=== PATIENT | female | born 1965 | race Caucasian/White ===

== ENCOUNTER 2021-09-05 22:52 | Emergency (ER) | payer MEDICAID, SELFPAY ==
[2021-09-05 22:54] VITALS: BP 103/72; PULSE 86; RESP 18; TEMP 38.1; O2SAT 100; BMI 17.7
--- NOTE | 2021-09-05 23:02 | ED.RN ---
DR. BRDAFORD INFORMED OF PT SX ON TRIAGE. REPORTS PT TO BE EVALUATED.
--- NOTE | 2021-09-05 23:14 | EKG12_ITS ---
Test Reason : DYSRHYTHMIA Blood Pressure : / mmHG Vent. Rate : 100 BPM Atrial Rate : 100 BPM P-R Int : 118 ms QRS Dur : 084 ms QT Int : 356 ms P-R-T Axes : 086 073 054 degrees QTc Int : 459 ms Normal sinus rhythm Normal ECG Confirmed by ADRIEL DUMONT, GRACE ([id number]), editor sound SHARYN MUSTAFA ([id number]) on 09/07/2021 10:24:37 AM Referred By: LO Confirmed By:GRACE MOREL MD
--- NOTE | 2021-09-05 23:14 | RAD_ITS ---
STUDY: X-RAY CHEST REASON FOR EXAM: Female, 56 years old. cough TECHNIQUE: 2 AP portable views of the chest. 12:02 AM. COMPARISON: None. FINDINGS: The lungs are clear and expanded. There is no demonstrated pleural abnormality. Normal size heart. Normal mediastinum and marco. Normal visualized pulmonary arteries. Normal visualized aortic arch and descending thoracic aorta. No acute osseous abnormality. Total right shoulder prosthesis. Old left rib fractures. There is no demonstrated abnormality of the visualized soft tissue structures of the upper abdomen. RAD/Chest 1 View (Portable) IMPRESSION: No pneumonia or other acute cardiopulmonary disease process identified. Electronically Signed: Lan Ortiz MD at 0:36 EDT ,
--- NOTE | 2021-09-05 23:15 | EDS_ITS ---
HPI History of Present Illness Chief Complaint: Headache Informant: patient Narrative Narrative: Patient presents with multiple complaints. She was feeling fine until she sat in her car filling out paperwork at a library for over 2 hours today. She states the car was sealed up. It was in the mid 90s. The only thing she has eaten or drank today were 2 Mountain Dew's. She feels she has a dry mouth. She is aching all over. Triage note mentions a headache but she actually complains of pain covering her entire body. She also has a history of migraines. This is like a migraine but worse than her average. Its not her worst. It was not thunderclap. She also does admit to some slight cough that is nonproductive. She does states she feels bad overall. Only medicine that she is actually taking at this time is Adderall and a statin. The other medication she is not actually taking. PFSH PFS Home Medications cyclobenzaprine 5 mg tablet 5 mg PO TID PRN Pain 09/05/21 [History Last Taken Unknown] dextroamphetamine-amphetamine 15 mg tablet (Adderall) 15 mg PO BID 09/05/21 [History Last Taken Unknown] doxepin 10 mg capsule 10 mg PO QHS 09/05/21 [History Last Taken Unknown] hydroxyzine HCl 25 mg tablet 25 mg PO QHS 09/05/21 [History Last Taken Unknown] Allergy/AdvReac Type Severity Reaction Status Date / Time erythromycin base Allergy Hives Verified 09/05/21 22:53 Social History Smoking Status: Current every day smoker tobacco type: cigarettes ROS ROS ED Constitutional Constitutional ED: Reports subjective Eyes Eyes: Denies change in vision or diplopia ENT ENT ED: Denies ear pain, rhinorrhea or sore throat Cardiovascular Cardiovascular: Denies chest pain or palpitations Respiratory/Chest Respiratory/Chest: Reports cough and dyspnea Gastrointestinal Gastrointestinal: Denies abdominal pain, melena, nausea or vomiting Genitourinary Genitourinary ED: Reports other Details: When specifically asked, she does admit that her urine was dark today. She thinks she only urinated 1 time since she was filling out paperwork at about 4:00 today. Musculoskeletal Musculoskeletal: Reports arthralgias and other Details: She has diffuse arthralgias and myalgias. Integumentary Denies abscess or rash Neurologic Neurologic: Reports headache(s) and other Details: There is report of right- sided weakness. However, she had a friend who has some medical training. They asked her to wiggle her toes. When she wiggles the toes on her right foot her leg hurt. There is no lateralizing weakness or numbness. ; Denies paresthesias or weakness Psychiatric Psychiatric: Reports anxiety; Denies depression Endocrine Endocrinology: Denies cold intolerance or heat intolerance Allergic/Immunologic Allergic/Immunologic ED: Denies mouth swelling EXAM Physical Exam Const Vital Signs: 09/05/21 22:54 09/05/21 23:53 Temperature 100.6 F H Temperature Source Temporal Pulse Rate 86 92 Respiratory Rate 18 22 H Blood Pressure 103/72 108/56 L Blood Pressure Mean 82 73 Pulse Ox 100 98 Oxygen Delivery Method Room Air Room Air Positive well nourished and well developed General Appearance ED: well developed; Negative for cyanotic or diaphoretic HEENT Reports dry mucous membranes Mouth ED: Yes dry mucous membranes Mouth: dry mucous membranes Eyes PERRL and EOMs intact bilaterally Eyes Narrative: No visual field cut. Neck no lymphadenopathy Neck Narrative: There is no meningismus. There is muscular tenderness of her neck but she can look left right up and down. Chest Wall inspection of chest normal Resp normal respiratory effort Auscultation: Negative for rales, rhonchi or wheezes Cardio regular rhythm Rate: tachycardic GI normal to inspection, nondistended, normoactive bowel sounds, non-tender and non-distended Back/Spine no CVA tenderness Extremity Extremity Narrative: .No focal weakness. She has mild tenderness everywhere with palpation of skin but no focal areas of tenderness. I see no rashes or lesions. Neuro oriented x3, CN's II-XII intact bilaterally and no sensory deficits noted Neuro Narrative: NIH 0. Sensorium / Orientation: alert Psych mental status grossly normal Skin no rashes or lesions noted and no wounds MDM MDM MDM Narrative Medical decision making narrative: Patient's blood work shows normal CBC including white count, hemoglobin and platelets. Electrolytes are overall unremarkable other than mild elevation of her creatinine and glucose. LFTs are normal. Troponin is low. Alcohol is negative. Tox is negative except for marijuana. CPK is just minimally elevated but this is not rhabdo. Lactic acid is normal. Chest x-ray shows no acute process. CT of her head shows mild right ethmoid sinus mucosal disease but no acute mass bleed or stroke. Patient is feeling better with just IV fluids. She still has muscle aches and a little bit of a headache. I will give her some Toradol. Her mouth is still dry. We will get her home at this time. I do not think her symptoms justify lumbar puncture. She has diffuse myalgias a slight cough negative COVID and influenza. She does have a headache but this is mixed in with many other symptoms. She has no meningismus. I think this is likely a combination of viral syndrome as well as not eating or drinking today and sitting in a hot car filling out paperwork for over 2 hours which is what really started her symptoms. She also has a history of migraines. Lab Data Attestation: I reviewed the patient's lab results. Labs: Laboratory Results - last 24 hr 09/05/21 09/05/21 09/05/21 23:30 23:30 23:30 WBC 6.4 RBC 4.19 L Hgb 13.4 Hct 38.2 MCV 91.2 MCH 32.0 MCHC 35.1 RDW Std Deviation 41.7 RDW Coeff of Lucy 12.7 Plt Count 276 MPV 9.9 Immature Gran % (Auto) 0.300 Neut % (Auto) 81.6 H Lymph % (Auto) 5.2 L [place] % (Auto) 12.6 H Eos % (Auto) 0.0 Baso % (Auto) 0.3 Absolute Neuts (auto) 5.2 Absolute Lymphs (auto) 0.33 L Nucleated RBC % 0 Differential Comment SCANNED Sodium 136 Potassium 3.5 Chloride 104 Carbon Dioxide 25.0 Anion Gap 7 BUN 11 Creatinine 1.10 H Estim Creat Clear Calc 44.98 Est GFR (MDRD) Af Amer 66 Est GFR (MDRD) Non-Af 55 L BUN/Creatinine Ratio 10.0 Glucose 110 H Lactic Acid Calcium 9.1 Total Bilirubin 0.20 AST 16 ALT 17 Alkaline Phosphatase 87 Total Creatine Kinase Troponin I High Sens < 3 L Total Protein 7.1 Albumin 3.8 Globulin 3.3 Albumin/Globulin Ratio 1.2 Urine Opiates Screen Urine Methadone Screen Ur Barbiturates Screen Ur Phencyclidine Scrn Ur Amphetamines Screen MDMA (Ecstasy) Screen U Benzodiazepines Scrn Urine Cocaine Screen U Cannabinoids Screen Ur Drug Screen Comment Ethyl Alcohol < 3.0 09/05/21 09/05/21 09/06/21 23:30 23:30 00:23 WBC RBC Hgb Hct MCV MCH MCHC RDW Std Deviation RDW Coeff of Lucy Plt Count MPV Immature Gran % (Auto) Neut % (Auto) Lymph % (Auto) [place] % (Auto) Eos % (Auto) Baso % (Auto) Absolute Neuts (auto) Absolute Lymphs (auto) Nucleated RBC % Differential Comment Sodium Potassium Chloride Carbon Dioxide Anion Gap BUN Creatinine Estim Creat Clear Calc Est GFR (MDRD) Af Amer Est GFR (MDRD) Non-Af BUN/Creatinine Ratio Glucose Lactic Acid 1.0 Calcium Total Bilirubin AST ALT Alkaline Phosphatase Total Creatine Kinase 226 H Troponin I High Sens Total Protein Albumin Globulin Albumin/Globulin Ratio Urine Opiates Screen NEGATIVE Urine Methadone Screen NEGATIVE Ur Barbiturates Screen NEGATIVE Ur Phencyclidine Scrn NEGATIVE Ur Amphetamines Screen NEGATIVE MDMA (Ecstasy) Screen NEGATIVE U Benzodiazepines Scrn NEGATIVE Urine Cocaine Screen NEGATIVE U Cannabinoids Screen POSITIVE H Ur Drug Screen Comment Ethyl Alcohol Radiography Diagnostic Testing: Clinical Impression(s) from Imaging Studies Chest X-Ray 09/05/21 23:14 IMPRESSION: No pneumonia or other acute cardiopulmonary disease process identified. Electronically Signed: Lan Ortiz MD at 0:36 EDT Reading Location ID and State: [facility] / [place] Tel , Service support , Brain CT 09/06/21 23:14 IMPRESSION: Minimal right ethmoid sinus mucosal disease. Otherwise negative. No intracranial hemorrhage or mass. Electronically Signed: Lan Ortiz MD at 0:27 EDT , Discharge Plan Triage Chief Complaint: Headache ED Provider: King Dickson Dx/Rx/DC Orders Clinical Impression: Dehydration, Migraine headache, Cough Instructions: ED Dehydration (Adult) Prescriptions: No Action doxepin 10 mg Capsule 10 mg PO QHS dextroamphetamine-amphetamine [Adderall] 15 mg Tablet 15 mg PO BID Rx Instructions: administer doses at least 4-6 hours apart hydroxyzine HCl 25 mg Tablet 25 mg PO QHS cyclobenzaprine 5 mg Tablet 5 mg PO TID PRN (Reason: Pain) Primary Care Provider: Care Physician,No Primary Referrals: Kate Moran MD [STAFF PHYSICIAN] - 3-5 Days if not improving Care Physician,No Primary [Primary Care Provider] - Disposition Disposition: Home, Self Care
[2021-09-05] MEDS: 0.9% Normal Saline 1,000 ML 1000 ML IV (23:24)
[2021-09-05] MEDS: Acetaminophen 325 MG Tablet 650 MG PO (23:31)
[2021-09-05 23:45] LABS: Absolute Lymphocyte Count 0.33 X10^3/uL (0.83-4.51); Absolute Neutrophil Count 5.2 X10^3/uL (2.0-7.7); Basophil# 0.02 X10^3/uL; Basophil% 0.3 % (0-1); Hematocrit 38.2 % (37-47); Hemoglobin 13.4 g/dL (12.0-15.0); Lymphocyte # 0.33 X10^3/ul (0.83-4.51); Lymphocyte % 5.2 % (19-41); Mean Corp Hgb Conc 35.1 g/dL (32-36); Mean Corpuscular Volume 91.2 fL (81-99); Mean Platelet Vol. 9.9 fl (6.2-12.0); Monocyte% 12.6 % (0-10); NRBC Flagged by Analyzer 0 % (0-5); Neutrophil # 5.18 X10^3/uL (2.7-7.7); Neutrophil % 81.6 % (47-70); POSITIVE DIFFERENTIAL YES; Platelet Count 276 K/mm3 (150-450); RBC Distribution Width CV 12.7 % (11.6-14.6); RBC Distribution Width SD 41.7 fl (35.1-43.9); Red Blood Count 4.19 M/mm3 (4.2-5.4); White Blood Count 6.4 K/mm3 (4.4-11.0)
[2021-09-05 23:53] VITALS: BP 108/56; PULSE 92; RESP 22; O2SAT 98
[2021-09-06 00:04] LABS: Differential Indicated SCAN CRITERIA MET
[2021-09-06 00:09] LABS: ALB/GLOB Ratio 1.2 RATIO (0.9-2.4); AST(SGOT) 16 U/L (15-37); Alanine Aminotransfer ALT/SGPT 17 U/L (13-56); Albumin, Serum 3.8 g/dL (3.2-5.0); Alkaline Phosphatase 87 U/L (45-117); Anion Gap 7 (5-15); BUN 11 mg/dL (7-18); Calcium,Total 9.1 mg/dL (8.5-10.1); Chloride 104 mmol/L (98-107); EST Glomerular Filtration Rate 55 mL/min (>60); Est Glom Filt Rate - Afr Amer 66 mL/min (>60); Estimated Creatinine Clearance 44.98 ml/min; Globulin 3.3 g/dL (2.2-4.2); Glucose 110 mg/dL (74-106); Potassium 3.5 mmol/L (3.5-5.1); Protein, Total 7.1 g/dL (6.4-8.2); Sodium Level 136 mmol/L (136-145); Troponin-I HS < 3 pg/mL (3.0-54.0)
[2021-09-06 00:13] LABS: Alcohol, Blood (Medical)-Serum < 3.0 mg/dL
[2021-09-06 00:23] LABS: Differential Comment SCANNED
[2021-09-06 00:34] LABS: CPK Total, Creatine Kinase 226 U/L (26-192)
[2021-09-06 00:45] LABS: Amphetamine Urine VISTA NEGATIVE (<1000 ng/mL); Barbiturate Urine VISTA NEGATIVE (< 200 ng/mL); Benzodiazepine Urine VISTA NEGATIVE (< 200 ng/mL); Cocaine Urine VISTA NEGATIVE (< 300 ng/mL); Ecstacy Urine VISTA NEGATIVE (< 500 ng/mL); Methadone Urine VISTA NEGATIVE (< 300 ng/mL); PCP Urine VISTA NEGATIVE (< 25 ng/mL); THC Urine VISTA POSITIVE (< 50 ng/mL); Vista UDS pH Range 7
[2021-09-06] MEDS: Ketorolac 15 MG/ML Vial IV (01:02)
[2021-09-06] MEDS: 0.9% Normal Saline 1,000 ML 999 ML IV (01:05)
[2021-09-06 02:13] VITALS: BP 95/55; PULSE 68; RESP 18; O2SAT 100
--- NOTE | 2021-09-06 23:14 | CT_ITS ---
STUDY: CT BRAIN WITHOUT CONTRAST REASON FOR EXAM: Female, 56 years old. headache RADIATION DOSAGE (If Supplied By Facility): CTDIvol = ( 44.99 ) mGy, DLP = ( 779.24 ) mGycm TECHNIQUE: Transaxial CT imaging of the brain was performed without administration of intravenous contrast material. Individualized dose optimization techniques were used for this CT. COMPARISON: No relevant priors. FINDINGS: Normal soft tissue structures. Normal calvarium. Normal size ventricles and extra-axial spaces for the patient''s age. Normal white matter tracts of the cerebral hemispheres. Normal basal ganglia and thalami. Normal brainstem. Normal cerebellum. There is no intracranial hemorrhage. There are no findings of an acute ischemic infarction. No intracranial mass. Minimal mucosal thickening noted within the anterior right ethmoid air cells. No paranasal sinus air-fluid levels. Adenoids are prominent. Visualized mastoid air cells are clear. CT/Brain/Head without Contrast IMPRESSION: Minimal right ethmoid sinus mucosal disease. Otherwise negative. No intracranial hemorrhage or mass. Electronically Signed: Lan Ortiz MD at 0:27 EDT ,
== END 2021-09-06 02:15 | disposition home or self-care (01) ==
PROVIDERS: Emergency Provider Emergency Medicine; Visit Provider Emergency Medicine
DX: E86.0 Dehydration (principal); G43.909 Migraine, unspecified, not intractable, without status migrainosus; M79.10 Myalgia, unspecified site; R05.9 Cough, unspecified; F17.210 Nicotine dependence, cigarettes, uncomplicated
CPT/HCPCS: 70450; 71045; 80053; 80307; 82077; 82550; 83605; 84484; 85025; 87428; 93005; 96361; 96374; 99285; J7030; A4216

== ENCOUNTER 2023-04-16 00:58 | Emergency (ER) | payer MEDICAID, SELFPAY ==
[2023-04-16 01:00] VITALS: BP 118/77; PULSE 65; RESP 12; TEMP 36.5; O2SAT 100; BMI 19.1
--- OUTSIDE RECORDS SUMMARY | 2023-04-16 01:35 | XMS RPT_ITS | CCD ---
Author Name Unknown Address [address] [place] [address] Organization [facility] Care Team Providers Care Director Of Event Sales Name Role Phone Codie Bang. Unavailable Unavailable Eddie Quintanilla Unavailable Unavailable Codie Bang Unavailable Unavailable Kyler Cooley Unavailable Unavailable Codie Bang Primary Care Provider [phone] Codie Bang Primary Care Provider CODIE BANG MD Primary Care Physician [phone] CODIE BANG MD Attending UnavailCODIE Curry MD Primary Care UnavailCodie Curry Primary Care Provider [phone] Codie Bang MD Primary Care Provider [phone] CODIE BANG Primary Care Unavailable MIGUELINA FERREIRA Attending Unavailable MIGUELINA FERREIRA Referring Unavailable CODIE BANG Primary Care Unavailable CODIE BANG Primary Care Unavailable DIANA MEI Attending Unavailable CODIE BANG Primary Care Unavailable HARISH PEARCE Referring Unavailable CODIE BANG Primary Care Unavailable Allergies Allergy Classification Reported Allergen(s) Allergy Type Date of Onset Reaction(s) Facility (2 sources) Erythromycin Drug Allergy 02-18-2017 [facility] Repository (3 sources) Naproxen; Translations: [NAPROXEN] Drug Allergy 02-18-2017 [facility] Repository (5 sources) Erythromycin; Translations: [erythromycin] Drug Allergy 01-15-2022 Unknown [facility] (4 sources) Naproxen; Translations: [naproxen] Drug Allergy 02-18-2017 Unknown [facility] Medications Current Medications Medication Drug Class(es) Dates Sig (Normalized) Sig (Original) cephalexin 500 mg oral capsule (1 source) Cephalosporin Antibacterial Start: 01-03-2023 End: 01-10-2023 take 1 capsule by mouth three times daily cephALEXin (KEFLEX) 500 mg capsule Indications: Abrasion of finger with infection, initial encounter Take 1 capsule by mouth three times a day for 7 days. 21 capsule 0 01/03/2023 01/10/2023 Active Completed/Discontinued Medications Medication Drug Class(es) Dates Sig (Normalized) Sig (Original) amphetamine aspartate 5 mg / amphetamine sulfate 5 mg / dextroamphetamine saccharate 5 mg / dextroamphetamine sulfate 5 mg oral tablet (3 sources) Central Nervous System Stimulant Start: 11-23-2021 take 1 tablet by mouth once daily before breakfast dextroamphetamin e-amphetamine (ADDERALL) 20 mg tablet Take 1 tablet by mouth daily before breakfast. 0 11/23/2021 Active Problems Active Problems Problem Classification Problem Date Documented Da te Episodic/Chronic Attention-deficit, conduct, and disruptive behavior disorders (1 source) Attention deficit hyperactivity disorder, combined type; Translations: [Attention-deficit hyperactivity disorder, combined type] 10-10-2022 Chronic Attention-deficit, conduct, and disruptive behavior disorders (1 source) Attention-deficit hyperactivity disorder, combined type; Translations: [Attention deficit hyperactivity disorder, combined type] Onset: 10-10-2022 Chronic Other bone disease and musculoskeletal deformities (1 source) Costal chondritis; Translations: [Chondrocostal junction syndrome [Tietze]] Episodic Other connective tissue disease (1 source) Pain of left hand; Translations: [Pain in left hand] 01-03-2023 Episodic Other connective tissue disease (1 source) Pain in left hand; Translations: [Pain of left hand] Onset: 01-03-2023 Episodic Skin and subcutaneous tissue infections (1 source) Local infection of the skin and subcutaneous tissue, unspecified; Translations: [Abrasion of finger with infection, initial encounter] Onset: 01-03-2023 Episodic Superficial injury; contusion (4 sources) Contusion of left hand; Translations: [Contusion of left hand, initial encounter] Onset: 01-03-2023 01-03-2023 Episodic Past or Other Problems Problem Classification Problem Date Documented Da te Episodic/Chronic Headache; including migraine (2 sources) Scalp tenderness; Translations: [Scalp tenderness] Onset: 01-15-2022 Episodic Other bone disease and musculoskeletal deformities (1 source) Chondrocostal junction syndrome [Tietze]; Translations: [Costochondritis] Onset: 01-15-2022 Episodic Results Test Name Value Interpretation Reference Range Facil ity Vital Signs Date Time Vital Sign Value Performing Clinician Lucilai david 01-03-2023 16:26-0400 Body temperature 98.1 [degF] Miguelina Ferreira MD Work Phone: [facility] 01-03-2023 16:26-0400 Body weight 50.8 kg Miguelina Ferreira MD Work Phone: [facility] 01-03-2023 16:26-0400 Diastolic blood pressure 82 mm[Hg] Miguelina Ferreira MD Work Phone: [facility] 01-03-2023 16:26-0400 Heart rate 66 /min Miguelina Ferreira MD Work Phone: [facility] 01-03-2023 16:26-0400 Respiratory rate 19 /min Miguelina Ferreira MD Work Phone: [facility] 01-03-2023 16:26-0400 SaO2% (BldA) [Mass fraction] 100 % Miguelina Ferreira MD Work Phone: [facility] 01-03-2023 16:26-0400 Systolic blood pressure 124 mm[Hg] Miguelina Ferreira MD Work Phone: [facility] 01-15-2022 18:44-0400 Body temperature 98.29 [degF] Diana Cisse MD Work Phone: [facility] 01-15-2022 18:44-0400 Body weight 49.9 kg Diana Cisse MD Work Phone: [facility] 01-15-2022 18:44-0400 Diastolic blood pressure 72 mm[Hg] Diana Cisse MD Work Phone: [facility] 01-15-2022 18:44-0400 Heart rate 64 /min Diana Cisse MD Work Phone: [facility] 01-15-2022 18:44-0400 Respiratory rate 16 /min Diana Cisse MD Work Phone: [facility] 01-15-2022 18:44-0400 SaO2% (BldA) [Mass fraction] 100 % Diana Cisse MD Work Phone: [facility] 01-15-2022 18:44-0400 Systolic blood pressure 118 mm[Hg] Diana Cisse MD Work Phone: [facility] Encounters Encounter Date Encounter Type Care Provider Facility Start: 01-03-2023 End: 01-03-2023 ambulatory CODIE Manav [facility] Facility:[id number] Start: 01-03-2023 End: 01-03-2023 Office outpatient visit 15 minutes Miguelina Ferreira MD Work Phone: [facility] Procedures Date Procedure Procedure Detail Performing Clinician Start: 10-10-2022 Ecg routine ecg w/le ast 12 lds i&r only Alfredo Barker Work Phone: Start: 05-11-2021 Lipid 1996 panel - S chito or Plasma Miguelina Ferreira MD Work Phone: Plan of Treatment Date Care Activity Detail Author Start: 06-15-2027 Urine microalbumin profile DTaP,Tdap,Td Vaccine (3 - Td or Tdap) [facility] Start: 05-11-2026 Lipid 1996 panel - S chito or Plasma Lipid Screening [facility] Start: 05-11-2026 LIPID SCREEN LIPID SCREEN [facility] Start: 10-19-2025 Diabetes Screening Diabetes Screenin g [facility] Start: 05-11-2024 DIABETES SCREEN DIABETES SCREEN [facility] Start: 01-03-2023 End: 02-02-2024 XR HAND GENERAL 3V PA/LAT/OBL LEFT [facility] Work Phone: Immunizations Immunization Date Immunization Notes Care Provider Fa jodi 12-27-2020 influenza virus vacc ine, unspecified formulation Miguelina Ferreira MD Work Phone: [facility] Payers Date Payer Category Payer Unknown [id number] 2021 Medicaid [id number] 2021 Medicaid [id number] 2017 Self-pay 2014 Medicaid [facility] MEDICAID [facility] MEDICAID [id number] 2014-Present [phone] [address] [place] [address] Medicaid [id number] 1965 Unknown [id number] Unknown [id number] Unknown [id number] Social History Date Type Detail Facility Tobacco smoking stat [facility] Tobacco smoking consumption unknown [facility] Start: 1965 Sex Assigned At Not on file [facility] Start: 01-15-2022 Tobacco smoking stat [facility] Smokes tobacco daily [facility] of tobacco use [facility] Start: 01-15-2022 Tobacco use and exposure Smoke less tobacco non-user [facility] Start: 01-15-2022 End: 01-03-2023 Alcohol intake Ex-drinker (finding) [facility] Start: 01-05-2022 End: 01-15-2022 Exposure to SARS-CoV-2 (event) Not sure [facility] Start: 03-13-2018 Tobacco smoking status Heavy t obacco smoker (finding) [facility] Sex Assigned At Sex [facility] Start: 01-15-2022 End: 01-03-2023 History of Social function [facility] Start: 01-15-2022 End: 01-03-2023 Tobacco use panel [facility] Adult Depression Screening Assessment 0 [facility] Clinical Notes 04-28-2020 to 01-03-2023 Patient InstructionsMiguelina Ferreira MD - 01/03/2023 4:33 PM EDTWhcyndee, MARIA FERNANDA Elliott - 10/10/2022 4:06 PM EDTPatient Catherine Cisse MD - 01/15/2022 7:04 PM EDT Note Date & Type Note Facility 01-03-2023 Note HNO ID: [id number] Author: Jem Pal RT(R) Service: ? Author Type: Technologist Type: Progress Notes Filed: 01/03/2023 7:44 PM Note Text: Radiology Service Progress Note PATIENT NAME: Veronica Head DATE OF SERVICE: January 03, 2023 TIME: 7:44 PM PATIENT IDENTITY VERIFICATION COMPLETED USING TWO (2) IDENTIFIERS: Name and Date of confirmed by patient verbally. FALL SCREENING: Has the patient had 2 falls in the last year or 1 fall with injury or currently using an Ambulatory Assistive Device (Walker, Cane, Wheelchair, Crutches, etc.)? No PATIENT GENDER DATA: Female. status: : No status: N/A PATIENT RELEVANT IMPLANT DATA REVIEWED: Not Applicable RADIOLOGY DEPARTMENT: General X-ray: Exam(s) Completed: Upper Extremity X-Ray(s): Hand, left PERIPHERAL IV DATA: Not applicable SIGNED BY: RT Jourdan(R) January 03, 2023 7:44 PM [facility] 01-03-2023 Note HNO ID: [id number] Author: Miguelina Ferreira MD Service: ? Author Type: Physician Type: Progress Notes Filed: 01/03/2023 5:05 PM Note Text: Veronica Head is a 57 year old FEMALE who presents with Hand Pain (Left hand /Started 4 days ago at home/States a freezer that weighs approx 300lbs smashed her hand) and Finger Pain (S/p freezer landing on her hand, /4 days ago ) 57 years old female been with pain of the left hand Her hand got smashed while she was helping to move a freezer onto the truck and it came down This happened 4 days ago and she still have pain and difficulty moving her fingers. Also has a scratch on the left ring finger which happened before this accident She got this scratch from a patio break caused an abrasion which is now red and slightly painful Hand Pain History reviewed. No pertinent past medical history. There is no problem list on file for this patient. Current Outpatient Medications Medication Sig Dispense Refill rosuvastatin calcium (CRESTOR ORAL) Take by mouth once daily. Cholecalciferol, Vitamin D3, 125 mcg (5,000 unit) cap dextroamphetamine-amphetamine (ADDERALL) 20 mg tablet Take 1 tablet by mouth daily before breakfast. hydrOXYzine HCl (ATARAX) 25 mg tablet Take by mouth. calcium-vits E3-A-C4-minerals 166.75 mg- 166.75 unit cap calcium (Patient not taking: Reported on 01/03/2023) atorvastatin calcium (LIPITOR ORAL) atorvastatin (Patient not taking: Reported on 01/03/2023) doxepin capsule 10 mg Take by mouth. (Patient not taking: Reported on 01/03/2023) etodolac (LODINE) 300 mg capsule Take 1 capsule by mouth every 8 hours. (Patient not taking: Reported on 01/03/2023) 20 capsule 0 No current facility-administered medications for this visit. Social History Tobacco Use Smoking status: Every Day Types: Cigarettes Smokeless tobacco: Never Vaping Use Vaping Use: Never used Substance Use Topics Alcohol use: Not Currently Drug use: Not Currently Alcohol Use: Not Currently Tobacco Use: Types: Cigarettes History reviewed. No pertinent family history. Review of Systems Musculoskeletal: Positive for joint pain (Left hand pain). BP 124/82 Pulse 66 Temp (Src) 98.1 (Temporal) Resp 19 Wt 112 lb (50.8kg) SpO2 100% Physical Exam Vitals reviewed. Constitutional: General: She is not in acute distress. Appearance: Normal appearance. She is not ill-appearing or toxic-appearing. Cardiovascular: Rate and Rhythm: Normal rate and regular rhythm. Heart sounds: Normal heart sounds. Pulmonary: Effort: Pulmonary effort is normal. Breath sounds: Normal breath sounds. Musculoskeletal: General: Swelling (Mild swelling of the dorsum of the left hand) and tenderness (Of the metacarpals and fingers) present. Comments: We did motions of fingers due to pain There is an oral small abrasion on the radial side of left ring finger about 3 to 4 mm in diameter with dry scab. The surrounding skin is red and swollen The patient appears to be infected. Neurological: Mental Status: She is alert. Splane to patient that x-ray did not show any acute bone or joint injury of the hand. We will treat her for infected abrasion of her finger with antibiotics. Patient understand and agree ASSESSMENT/PLAN: 1. Pain of left hand - ICD9: 729.5, ICD10: M79.642 (primary diagnosis) - XR HAND GENERAL 3V PA/LAT/OBL LEFT 2. Contusion of left hand, initial encounter - ICD9: 923.20, ICD10: S60.222A 3. Abrasion of finger with infection, initial encounter - ICD9: 915.1, ICD10: S60.419A, L08.9 - CEPHALEXIN 500 MG CAPSULE Rest elevation ice OTC pain med Limit activities F/u PCP Explained Take antibiotic as per prescription and do wound care of finger at home Miguelina Ferreira MD [facility] 01-03-2023 Instructions Miguelina Ferreira MD - 01/03/2023 5:02 PM EDT Rest elevation ice OTC pain med Limit activities F/u PCP Explained Take antibiotic as per prescription and do wound care of finger at home documented in this encounter [facility] 01-03-2023 History of Present illness Narrative Formatting of this note is different fro m the original. Veronica Head is a 57 year old FEMALE who presents with Hand Pain (Left hand /Started 4 days ago at home/States a freezer that weighs approx 300lbs smashed her hand) and Finger Pain (S/p freezer landing on her hand, /4 days ago ) 57 years old female been with pain of the left hand Her hand got smashed while she was helping to move a freezer onto the truck and it came down This happened 4 days ago and she still have pain and difficulty moving her fingers. Also has a scratch on the left ring finger which happened before this accident She got this scratch from a patio break caused an abrasion which is now red and slightly painful Hand Pain History reviewed. No pertinent past medical history. There is no problem list on file for this patient. Current Outpatient Medications Medication Sig Dispense Refill rosuvastatin calcium (CRESTOR ORAL) Take by mouth once daily. Cholecalciferol, Vitamin D3, 125 mcg (5,000 unit) cap dextroamphetamine-amphetamine (ADDERALL) 20 mg tablet Take 1 tablet by mouth daily before breakfast. hydrOXYzine HCl (ATARAX) 25 mg tablet Take by mouth. calcium-vits C9-V-G5-minerals 166.75 mg- 166.75 unit cap calcium (Patient not taking: Reported on 01/03/2023) atorvastatin calcium (LIPITOR ORAL) atorvastatin (Patient not taking: Reported on 01/03/2023) doxepin capsule 10 mg Take by mouth. (Patient not taking: Reported on 01/03/2023) etodolac (LODINE) 300 mg capsule Take 1 capsule by mouth every 8 hours. (Patient not taking: Reported on 01/03/2023) 20 capsule 0 No current facility-administered medications for this visit. Social History Tobacco Use Smoking status: Every Day Types: Cigarettes Smokeless tobacco: Never Vaping Use Vaping Use: Never used Substance Use Topics Alcohol use: Not Currently Drug use: Not Currently Alcohol Use: Not Currently Tobacco Use: Types: Cigarettes History reviewed. No pertinent family history. Review of Systems Musculoskeletal: Positive for joint pain (Left hand pain). BP 124/82 Pulse 66 Temp (Src) 98.1 (Temporal) Resp 19 Wt 112 lb (50.8kg) SpO2 100% Physical Exam Vitals reviewed. Constitutional: General: She is not in acute distress. Appearance: Normal appearance. She is not ill-appearing or toxic-appearing. Cardiovascular: Rate and Rhythm: Normal rate and regular rhythm. Heart sounds: Normal heart sounds. Pulmonary: Effort: Pulmonary effort is normal. Breath sounds: Normal breath sounds. Musculoskeletal: General: Swelling (Mild swelling of the dorsum of the left hand) and tenderness (Of the metacarpals and fingers) present. Comments: We did motions of fingers due to pain There is an oral small abrasion on the radial side of left ring finger about 3 to 4 mm in diameter with dry scab. The surrounding skin is red and swollen The patient appears to be infected. Neurological: Mental Status: She is alert. Splane to patient that x-ray did not show any acute bone or joint injury of the hand. We will treat her for infected abrasion of her finger with antibiotics. Patient understand and agree ASSESSMENT/PLAN: 1. Pain of left hand - ICD9: 729.5, ICD10: M79.642 (primary diagnosis) - XR HAND GENERAL 3V PA/LAT/OBL LEFT 2. Contusion of left hand, initial encounter - ICD9: 923.20, ICD10: S60.222A 3. Abrasion of finger with infection, initial encounter - ICD9: 915.1, ICD10: S60.419A, L08.9 - CEPHALEXIN 500 MG CAPSULE Rest elevation ice OTC pain med Limit activities F/u PCP Explained Take antibiotic as per prescription and do wound care of finger at home Miguelina Ferreira MD documented in this encounter [facility] 10-10-2022 Note HNO ID: [id number] Author: Lexi Wang LPN Service: ? Author Type: LICENSED NURSE Type: Progress Notes Filed: 10/10/2022 4:06 PM Note Text: EKG preformed without problem. Patient tolerated well no other concerns voiced at this time. Lexi Wang LPN [facility] 10-10-2022 History of Present illness Narrative Formatting of this note might be differe nt from the original. EKG preformed without problem. Patient tolerated well no other concerns voiced at this time. Lexi Wang LPN documented in this encounter [facility] 01-15-2022 Note HNO ID: [id number] Author: Diana Cisse MD Service: ? Author Type: Physician Type: Progress Notes Filed: 01/15/2022 8:36 PM Note Text: Veronica Head is a 56 year old female who presents with pain with breathing (Lumps on head x 4 days) Patient has been complaining chest pain for the past 4 days. She said she was doing some cleaning in her garage and thinks she irritated her muscles. She also noticed some lumps in her head over the past few weeks so they do not hurt The history is provided by the patient. No dinkey motor operator was used. History reviewed. No pertinent past medical history. There is no problem list on file for this patient. Current Outpatient Medications Medication Sig Dispense Refill calcium-vits V8-Q-D3-minerals 166.75 mg- 166.75 unit cap calcium atorvastatin calcium (LIPITOR ORAL) atorvastatin Cholecalciferol, Vitamin D3, 125 mcg (5,000 unit) cap dextroamphetamine-amphetamine (ADDERALL) 20 mg tablet Take 1 tablet by mouth daily before breakfast. doxepin capsule 10 mg Take by mouth. hydrOXYzine HCl (ATARAX) 25 mg tablet Take by mouth. No current facility-administered medications for this visit. Social History Tobacco Use Smoking status: Every Day Types: Cigarettes Smokeless tobacco: Never Vaping Use Vaping Use: Never used Substance Use Topics Alcohol use: Not Currently Drug use: Not Currently Alcohol Use: Not Currently Tobacco Use: Types: Cigarettes History reviewed. No pertinent family history. Review of Systems Respiratory: Negative for cough, shortness of breath and wheezing. Cardiovascular: Positive for chest pain. Skin: Lumps head 2 weeks BP 118/72 Pulse 64 Temp 98.3 Resp 16 Wt 110 lb (49.9kg) SpO2 100% Physical Exam Vitals and nursing note reviewed. Constitutional: Appearance: Normal appearance. HENT: Right Ear: Tympanic membrane normal. Left Ear: Tympanic membrane normal. Nose: No congestion or rhinorrhea. Mouth/Throat: Mouth: Mucous membranes are moist. Pharynx: Oropharynx is clear. Eyes: Extraocular Movements: Extraocular movements intact. Pupils: Pupils are equal, round, and reactive to light. Cardiovascular: Rate and Rhythm: Normal rate and regular rhythm. Pulses: Normal pulses. Heart sounds: Normal heart sounds. Pulmonary: Effort: Pulmonary effort is normal. No respiratory distress. Breath sounds: Normal breath sounds. No wheezing or rhonchi. Chest: Chest wall: Tenderness (Bilateral anterior chest wall) present. Musculoskeletal: General: No swelling, tenderness or signs of injury. Cervical back: Normal range of motion. Lymphadenopathy: Cervical: No cervical adenopathy. Skin: General: Skin is warm and dry. Comments: No visible edema or erythema to the scalp but it appears tender to palpation Neurological: Mental Status: She is alert. ASSESSMENT/PLAN: 1. Costochondritis - ICD9: 733.6, ICD10: M94.0 (primary diagnosis) Heat to the chest 15 minutes 2-3 times a day - ETODOLAC 300 MG CAPSULE 2. Scalp tenderness - ICD9: 784.0, ICD10: R51.9 Keep the scalp clean and dry and follow-up with PCP Diana Cisse MD [facility] 01-15-2022 Instructions Diana Cisse MD - 01/15/2022 7:35 PM EDT Maskell and wahs hair frequently F/u with PCP documented in this encounter [facility] 01-15-2022 History of Present illness Narrative Formatting of this note is different fro m the original. Veronica Head is a 56 year old female who presents with pain with breathing (Lumps on head x 4 days) Patient has been complaining chest pain for the past 4 days. She said she was doing some cleaning in her garage and thinks she irritated her muscles. She also noticed some lumps in her head over the past few weeks so they do not hurt The history is provided by the patient. No dinkey motor operator was used. History reviewed. No pertinent past medical history. There is no problem list on file for this patient. Current Outpatient Medications Medication Sig Dispense Refill calcium-vits X5-J-T2-minerals 166.75 mg- 166.75 unit cap calcium atorvastatin calcium (LIPITOR ORAL) atorvastatin Cholecalciferol, Vitamin D3, 125 mcg (5,000 unit) cap dextroamphetamine-amphetamine (ADDERALL) 20 mg tablet Take 1 tablet by mouth daily before breakfast. doxepin capsule 10 mg Take by mouth. hydrOXYzine HCl (ATARAX) 25 mg tablet Take by mouth. No current facility-administered medications for this visit. Social History Tobacco Use Smoking status: Every Day Types: Cigarettes Smokeless tobacco: Never Vaping Use Vaping Use: Never used Substance Use Topics Alcohol use: Not Currently Drug use: Not Currently Alcohol Use: Not Currently Tobacco Use: Types: Cigarettes History reviewed. No pertinent family history. Review of Systems Respiratory: Negative for cough, shortness of breath and wheezing. Cardiovascular: Positive for chest pain. Skin: Lumps head 2 weeks BP 118/72 Pulse 64 Temp 98.3 Resp 16 Wt 110 lb (49.9kg) SpO2 100% Physical Exam Vitals and nursing note reviewed. Constitutional: Appearance: Normal appearance. HENT: Right Ear: Tympanic membrane normal. Left Ear: Tympanic membrane normal. Nose: No congestion or rhinorrhea. Mouth/Throat: Mouth: Mucous membranes are moist. Pharynx: Oropharynx is clear. Eyes: Extraocular Movements: Extraocular movements intact. Pupils: Pupils are equal, round, and reactive to light. Cardiovascular: Rate and Rhythm: Normal rate and regular rhythm. Pulses: Normal pulses. Heart sounds: Normal heart sounds. Pulmonary: Effort: Pulmonary effort is normal. No respiratory distress. Breath sounds: Normal breath sounds. No wheezing or rhonchi. Chest: Chest wall: Tenderness (Bilateral anterior chest wall) present. Musculoskeletal: General: No swelling, tenderness or signs of injury. Cervical back: Normal range of motion. Lymphadenopathy: Cervical: No cervical adenopathy. Skin: General: Skin is warm and dry. Comments: No visible edema or erythema to the scalp but it appears tender to palpation Neurological: Mental Status: She is alert. ASSESSMENT/PLAN: 1. Costochondritis - ICD9: 733.6, ICD10: M94.0 (primary diagnosis) Heat to the chest 15 minutes 2-3 times a day - ETODOLAC 300 MG CAPSULE 2. Scalp tenderness - ICD9: 784.0, ICD10: R51.9 Keep the scalp clean and dry and follow-up with PCP Diana Cisse MD documented in this encounter [facility] 04-28-2020 History of Present illness Narrative DATE OF SERVICE: 04/28/2020 REASON FOR VISIT: Diarrhea, vomiting, runny nose, possible COVID-19 exposure. HISTORY OF PRESENT ILLNESS: This is a 55-year-old female who has vomiting, diarrhea, headache, body ache for the last 4 days. Her vomiting has now decreased, but she still feels nauseous and still has off and on diarrhea and some abdominal discomfort. Denied any fever, but she still feels headache and body ache. Patient stated that she might have been exposed to COVID-[address] No chest discomfort. No shortness of breath. Review of all other systems normal. PAST MEDICAL HISTORY/FAMILY HISTORY/SOCIAL HISTORY: Reviewed. ALLERGIES: ERYTHROMYCIN. MEDICATIONS: Vitamin. PHYSICAL EXAMINATION: She is awake, alert, not in distress. No dyspnea. Temperature 98.6, blood pressure 124/87, pulse 60, respirations 16, pulse oximetry 99% on room air. Pain score 8 out of 10, but does not correlate with her clinical appearance. HEENT: Has mild congestion, but not very significant. Throat not injected. No postnasal drip. Chest: Clear to auscultate. Heart: Regular rate and rhythm. Abdomen was soft, but she has mild general discomfort. No guarding. No rebound tenderness. Liver and spleen are not palpable. Bowel sounds active. DIAGNOSTIC DATA: COVID-19 nasal swab was obtained. ASSESSMENT: Acute gastroenteritis with viral upper respiratory infection, with COVID-19 testing. PLAN: Clinical findings were discussed with the patient in detail. I instructed her with a BRAT diet, maintain hydration, take Pepto-Bismol for diarrhea if needed, and I gave her Zofran 4 mg ODT 1 tablet every 6 hours as needed, 10 tablets with no refills. I explained to her that she needs to be in isolation until the result is available and follow with her doctor as needed. Patient understood and agreed. Her questions were answered to her satisfaction. Miguelina Ferreira MD PP/[id number] [facility] File#: [id number] END OF DOCUMENT / CHANGE LOG FOLLOWS Last Edited By Elec. Signed By Miguelina Ferreira MD #[id number] Miguelina Ferreira MD #[id number] on 04/28/2020 16:24 ET on 04/28/2020 16:24 ET Revision Number - 2 ^^^ Verified/Reviewed by 04/28/20 1624 [facility] PATIENT NAME: VERONICA HEAD [address] [facility] [address] MEDICAL REC #: [id number] [place] [address] [facility] REPORT [facility] documented in this encounter [facility] Evaluation + Plan note No data available for this section [facility] Diagnosis Attention deficit hyperactivity disorder, combined type- Primary Attention deficit disorder with hyperactivity [facility]* Diagnosis Pain of left hand- Primary Pain in limb Contusion of left hand, initial encounter Abrasion of finger with infection, initial encounter [facility] Discharge instructions No data available for this section [facility] Progress note No data available for this section [facility] Reason for referral (narrative)* Outpatient Procedure (Routine) - Closed Specialty Diagnoses / Procedures Referred By Contac t Referred To [facility] Diagnoses Attention deficit hyperactivity disorder, combined type Procedures ECG COMPLETE ECG ROUTINE ECG W/LEAST 12 LDS W/I&R Alfredo Barker [address] [place] [address] [facility] [place] [address] [place] [id number] Referral ID Status Reason Start Date Expiration Date V isits Requested Visits Authorized [id number] Closed Auto-Generate d Referral 10/10/2022 10/10/2023 1 1 [facility] for referral (narrative)* Diagnostic Procedure Only (Routine) - Closed Specialty Diagnoses / Procedures Referred By Contac t Referred To Contact XR IMAGING Diagnoses Pain of left hand Procedures XR HAND GENERAL 3V PA/LAT/OBL LEFT RADEX HAND MINIMUM 3 VIEWS Miguelina Ferreira MD [address] [place] [address] [place] [address] Referral ID Status Reason Start Date Expiration Date V isits Requested Visits Authorized [id number] Closed Auto-Generate d Referral 01/03/2023 02/02/2024 1 1 [facility]patient Procedure (Routine) - Closed Specialty Diagnoses / Procedures Referred By Contac t Referred To Contact [facility] Diagnoses Attention deficit hyperactivity disorder, combined type Procedures ECG COMPLETE ECG ROUTINE ECG W/LEAST 12 LDS W/I&R Alfredo Barker [address] [place] [address] [facility] [place] [address] [place] [address] Referral ID Status Reason Start Date Expiration Date V isits Requested Visits Authorized [id number] Closed Auto-Generate d Referral 10/10/2022 10/10/2023 1 1 [facility] Summary Purpose Family History No Family History Records FoundNo Family History Records FoundNo Family History Records FoundNo Family History Records Found Advance Directives No Advanced Directives Records FoundNo Advanced Directives Records FoundNo Advanced Directives Records FoundNo Advanced Directives Records Found Additional Source Comments INFORMATION SOURCE (unrecogn ized section and content) DATE CREATED AUTHOR AUTHOR'S ORGANIZ ATION 05/15/2021 [facility] [place] DATE CREATED AUTHOR AUTHOR'S ORGANIZ ATION 05/10/2022 [facility] ([place]) DATE CREATED AUTHOR AUTHOR'S ORGANIZ ATION 01/05/2023 [facility] Source Comments (unrecognize d section and content) In the event this informatio n is protected by the Federal Confidentiality of Alcohol and Drug Abuse Patient Records regulations: The Federal rules restrict any use of the information to criminally investigate or prosecute any alcohol or drug abuse patient.[facility] the event this information is protected by the Federal Confidentiality of Alcohol and Drug Abuse Patient Records regulations: The Federal rules restrict any use of the information to criminally investigate or prosecute any alcohol or drug abuse patient.[facility] the event this information is protected by the Federal Confidentiality of Alcohol and Drug Abuse Patient Records regulations: The Federal rules restrict any use of the information to criminally investigate or prosecute any alcohol or drug abuse patient.[facility] the event this information is protected by the Federal Confidentiality of Alcohol and Drug Abuse Patient Records regulations: The Federal rules restrict any use of the information to criminally investigate or prosecute any alcohol or drug abuse patient.[facility] the event this information is protected by the Federal Confidentiality of Alcohol and Drug Abuse Patient Records regulations: The Federal rules restrict any use of the information to criminally investigate or prosecute any alcohol or drug abuse patient.[facility] Care Teams (unrecognized sec tion and content) Director Of Event Sales Relationship Specialty Start Date End Date Codie Bang PCP - General Family Practice 06/14/14 Director Of Event Sales Relationship Specialty Start Date End Date Codie Bang PCP - General Family Medicine 06/14/14 Director Of Event Sales Relationship Specialty Start Date End Date Codie Bang PCP - General Family Medicine 06/14/14 Director Of Event Sales Relationship Specialty Start Date End Date Codie Bang MD PCP - General Family Medicine 06/14/14 Reason for Visit (unrecogniz ed section and content) Reason Comments Hand Pain Left hand Started 4 days ago at homeStates a freezer that weighs approx 300lbs smashed her hand Finger Pain S/p freezer landing on her hand, 4 days ago Care Team (unrecognized sect ion and content) Care Team Personnel Name: CODIE BANG MD Member Role: Primary Care Physician Address: Address: [address] FOR RECORDS PERTAINING TO PATIENTS WHO ARE OR HAVE BEEN ENROLLED IN A CHEMICAL DEPENDENCY/SUBSTANCEABUSE PROGRAM, SOME INFORMATION MAY BE OMITTED. This clinical summary was aggregated from multiple sources. Caution should be exercised in using it in the provision of clinical care. This summary normalizes information from multiple sources, and as a consequence, information in this document may materially change the coding, format and clinical context of patient data. In addition, data may be omitted in some cases. CLINICAL DECISIONS SHOULD BE BASED ON THE PRIMARY CLINICAL RECORDS. [facility] [employer] [facility]. provides no warranty or guarantee of the accuracy or completeness of information in this document.
--- NOTE | 2023-04-16 04:00 | RAD_ITS ---
EXAM: XR RIGHT HAND COMPLETE, 3 OR MORE VIEWS CLINICAL INDICATION: pain TECHNIQUE: Frontal, lateral and oblique views of the right hand. COMPARISON: No relevant prior studies available. FINDINGS: BONES/JOINTS: Well-healed fracture of the fifth metacarpal midshaft. No acute fracture. No subluxation. Normal alignment. Preservation of the joint spaces. No sclerotic or destructive changes observed. 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 SOFT TISSUES: Mild soft tissue swelling about the wrist. No radiopaque foreign body. RAD/Hand Min 3 Views IMPRESSION: No acute osseous or articular abnormality identified. Electronically Signed: Lan Ortiz MD at 5:47 EST ,
[2023-04-16 04:49] LABS: Bacteria 0 SEEN /hpf (None Seen); Mucous, Urine 0 SEEN /hpf (<or=2+); Red Blood Cells-Urine 0 SEEN /hpf (0-5); Squamous Epithelial Cells - UA 0 SEEN /hpf (5-10)
[2023-04-16 04:52] LABS: Absolute Lymphocyte Count 3.17 X10^3/uL (0.83-4.51); Absolute Neutrophil Count 5.6 X10^3/uL (2.0-7.7); Basophil# 0.07 X10^3/uL; Basophil% 0.7 % (0-1); Eosinophil# 0.52 X10^3/uL; Eosinophils% 5.1 % (0-5); Hematocrit 39.5 % (37-47); Hemoglobin 12.4 g/dL (12.0-15.0); Lymphocyte # 3.17 X10^3/ul (0.83-4.51); Mean Corp Hgb Conc 31.4 g/dL (32-36); Mean Corpuscular Hgb 28.7 pg (27.0-32.0); Mean Corpuscular Volume 91.4 fL (81-99); Mean Platelet Vol. 9.6 fl (6.2-12.0); Monocyte# 0.87 X10^3/uL; Monocyte% 8.5 % (0-10); NRBC Flagged by Analyzer 0 % (0-5); Neutrophil # 5.55 X10^3/uL (2.7-7.7); Neutrophil % 54.3 % (47-70); Platelet Count 403 K/mm3 (150-450); RBC Distribution Width SD 43.5 fl (35.1-43.9); Red Blood Count 4.32 M/mm3 (4.2-5.4); White Blood Count 10.2 K/mm3 (4.4-11.0)
[2023-04-16 04:53] LABS: Color, Urine Yellow (Yellow); Glucose, Dipstick Normal (Normal); Ketone-Dipstick Negative (Negative); Leukocyte Esterase-Dipstick 25 /ul (Negative); Nitrite-Dipstick Negative (Negative); Occult Blood-Urine Negative /ul (Negative); Protein-Dipstick Negative (Negative); Urine Bilirubin Dipstick Negative (Negative); Urine Clarity Clear (Clear); Urine Urobilinogen Normal (Normal); Urine pH 6.5 (5.0 - 8.0)
[2023-04-16 04:56] LABS: Erythrocyte Sedimentation Rate 30 mm/hr (0-30)
[2023-04-16 04:59] VITALS: RESP 16
[2023-04-16] MEDS: Ketorolac 15 MG/ML Vial IV (05:03)
[2023-04-16 05:17] LABS: ALB/GLOB Ratio 0.8 RATIO (0.9-2.4); AST(SGOT) 12 U/L (15-37); Alanine Aminotransfer ALT/SGPT 22 U/L (13-56); Albumin, Serum 3.4 g/dL (3.2-5.0); Alkaline Phosphatase 116 U/L (45-117); Anion Gap 3 (5-15); BUN 15 mg/dL (7-18); BUN/Creat Ratio 17.2 RATIO (10-20); CRP 8.24 mg/L (0.0-3.0); Calcium,Total 9.1 mg/dL (8.5-10.1); Chloride 106 mmol/L (98-107); Creatinine, Serum 0.87 mg/dL (0.55-1.02); EST Glomerular Filtration Rate 71 mL/min (>60); Est Glom Filt Rate - Afr Amer 86 mL/min (>60); Estimated Creatinine Clearance 60.59 ml/min; Globulin 4.2 g/dL (2.2-4.2); Glucose 132 mg/dL (74-106); Potassium 4.3 mmol/L (3.5-5.1); Protein, Total 7.6 g/dL (6.4-8.2); Sodium Level 136 mmol/L (136-145); Troponin-I HS 3 pg/mL (3.0-54.0)
[2023-04-16 05:24] LABS: CPK Total, Creatine Kinase 86 U/L (26-192)
[2023-04-16 05:40] LABS: White Blood Cells 0-5 SEEN /hpf (0-5)
--- NOTE | 2023-04-16 05:53 | EDS_ITS ---
HPI History of Present Illness Chief Complaint: Other, Pain/Inj Informant: patient Narrative Narrative: Patient is a 57 year female with history of OA, HLD presenting with hand swelling, myalgias and arthralgias. She states that her symptoms have been present for 9 days. She notes she did sustain an injury where a 400 pound fridge fell on her left hand however she followed up at [facility] and had an x-ray which was normal at that time. She notes that she has had increased swelling and pain of her right hand. She states the pain radiates up her arms. She has also been having bilateral knee pain. Denies any trauma to these extremities. Denies any fever or chills. Denies any GI or symptoms. Denies any recent medication changes. Has been taking ibuprofen and Tylenol with no relief of her pain. She states the other day she also was try to get off of couch and she feels that she pulled a muscle in her heart rate. Her daughter was concerned maybe she was having a heart attack. She denies any weight change. No significant abdominal pain reported however she did have some GI upset after taking naproxen the other day which is not unusual for her. Patient came in for further evaluation because she is never had pain like this before and she is worried there could be something more serious going on such as a blood infection. She feels that her veins in her hand are much more pronounced than normal. Patient is right-hand dominant. PFSH PFSH Home Medications cyclobenzaprine 5 mg tablet 5 mg PO TID PRN Pain 09/05/21 [History Last Taken Unknown] dextroamphetamine-amphetamine 15 mg tablet (Adderall) 15 mg PO BID 09/05/21 [History Last Taken Unknown] doxepin 10 mg capsule 10 mg PO QHS 09/05/21 [History Last Taken Unknown] hydroxyzine HCl 25 mg tablet 25 mg PO QHS 09/05/21 [History Last Taken Unknown] Allergy/AdvReac Type Severity Reaction Status Date / Time erythromycin base Allergy Hives Verified 04/16/23 00:59 Social History Smoking Status: Current every day smoker tobacco type: cigarettes ROS ROS ED Constitutional Constitutional ED: Denies chills or fever(s) Eyes Eyes: Denies change in vision Cardiovascular Cardiovascular: Reports chest pain Respiratory/Chest Respiratory/Chest: Denies cough or dyspnea Gastrointestinal Gastrointestinal: Denies abdominal pain, diarrhea, nausea or vomiting Genitourinary Genitourinary ED: Reports other Details: Darker urine ; Denies dysuria or urinary frequency Musculoskeletal Musculoskeletal: Reports arthralgias and myalgias; Denies back pain or neck pain Integumentary Denies rash Neurologic Neurologic: Denies headache(s) or weakness Psychiatric Psychiatric: Reports anxiety Hematologic/Lymphatic Hematologic/Lymphatic: Denies easy bleeding or easy bruising EXAM Physical Exam Const Vital Signs: 04/16/23 01:00 04/16/23 01:02 04/16/23 04:59 Temperature 97.7 F L Temperature Source Temporal Pulse Rate 65 Respiratory Rate 12 16 Respiratory Effort Normal Non-Labored Respiratory Pattern Normal Blood Pressure 118/77 Blood Pressure Mean 90 Pulse Ox 100 Oxygen Delivery Method Room Air Positive well nourished and well developed General Appearance ED: well developed and NAD HEENT Reports moist mucous membranes Eyes PERRL and EOMs intact bilaterally Neck supple Chest Wall inspection of chest normal and palpation of chest normal Resp normal respiratory effort and clear to auscultation bilaterally Cardio regular rate, regular rhythm and no murmurs GI normal to inspection, nondistended, normoactive bowel sounds and non-tender Extremity Extremity Narrative: Patient has some subtle edema to her right hand compared to the left. She does have decreased range of motion and decreased ability to make a fist of the fingers on the right. She has more fusiform swelling with pain with passive flexion of the middle finger on the right however there is no pinpoint bony tenderness. No obvious deformity. No associated erythema or warmth. Negative Tinel's sign bilateral. No pinpoint bony tenderness of the left upper extremity. Patient does not have any obvious knee effusions or decreased range of motion/short arc range of motion of the knee. No calf swelling or palpable cords appreciated. Normal ankle on exam. 2+ radial pulses bilaterally and 2+ PT pulses. Neuro oriented x3 Sensorium / Orientation: alert Motor Exam: Negative for general weakness Psych mental status grossly normal Mood & Affect: anxious and tearful Skin no rashes or lesions noted and no wounds MDM MDM MDM Narrative Medical decision making narrative: Patient evaluated for polyarthralgias. Appears nontoxic. Vital signs are normal. She is afebrile. No infectious symptoms reported. Differential includes a viral process, infection versus autoimmune process. Patient does have multiple pets but again does not report any recent bite scratches or infectious symptoms. No wounds reported. CBC unremarkable. ESR is normal. CRP is mildly elevated at 8.24 however given normal other inflammatory markers I do not think inpatient workup for this is indicated. Urinalysis will be sent for culture is a 0-5 white blood cells and patient's had some vague urinary symptoms however there is no bacteria and I do not think she requires antibiotics at this time. CMP normal. Patient is given dose of Toradol in the ER. She made hemodynamically stable in the ER. The c ause of her symptoms is not clear however at this time I think she can safely follow-up outpatient with her primary care doctor. Is possible she could have something like rheumatoid arthritis however does not need inpatient workup at this time. Lower suspicion for an acute gout given the polyarthropathy or an acute infection given her normal white count, lack of systemic symptoms and normal ESR. X-ray of the hand which has a maximal area of swelling is obtained and reviewed by myself as well as radiology does not show any acute process. While she does have some swelling and decreased range of motion I think it is more secondary to the swelling and I do not think this is flexor tenosynovitis. Lab Data Attestation: I reviewed the patient's lab results. Labs: Laboratory Results - last 24 hr 04/16/23 04:43 WBC 10.2 RBC 4.32 Hgb 12.4 Hct 39.5 MCV 91.4 MCH 28.7 MCHC 31.4 L RDW Std Deviation 43.5 RDW Coeff of Lucy 13.0 Plt Count 403 MPV 9.6 Immature Gran % (Auto) 0.400 Neut % (Auto) 54.3 Lymph % (Auto) 31.0 [place] % (Auto) 8.5 Eos % (Auto) 5.1 H Baso % (Auto) 0.7 Absolute Neuts (auto) 5.6 Absolute Lymphs (auto) 3.17 Nucleated RBC % 0 ESR 30 Sodium 136 Potassium 4.3 Chloride 106 Carbon Dioxide 27.0 Anion Gap 3 L BUN 15 Creatinine 0.87 Estim Creat Clear Calc 60.59 Est GFR (MDRD) Af Amer 86 Est GFR (MDRD) Non-Af 71 BUN/Creatinine Ratio 17.2 Glucose 132 H Calcium 9.1 Total Bilirubin 0.30 AST 12 L ALT 22 Alkaline Phosphatase 116 Total Creatine Kinase 86 Troponin I High Sens 3 C-React Prot Ext Range 8.24 H Total Protein 7.6 Albumin 3.4 Globulin 4.2 Albumin/Globulin Ratio 0.8 L Urine Color Yellow Urine Clarity Clear Urine pH 6.5 Ur Specific [place] 1.020 Urine Protein Negative Urine Glucose (UA) Normal Urine Ketones Negative Urine Occult Blood Negative Urine Nitrite Negative Urine Bilirubin Negative Urine Urobilinogen Normal Ur Leukocyte Esterase 25 H Urine RBC 0 SEEN Urine WBC 0-5 SEEN Ur Squamous Epith Cells 0 SEEN Urine Bacteria 0 SEEN Urine Mucus 0 SEEN Radiography Diagnostic Testing: Clinical Impression(s) from Imaging Studies Hand X-Ray 04/16/23 04:00 IMPRESSION: No acute osseous or articular abnormality identified. Electronically Signed: Lan Ortiz MD at 5:47 EST , Discharge Plan Triage Chief Complaint: Other, Pain/Inj ED Provider: Praveena Koo Dx/Rx/DC Orders Clinical Impression: Polyarthralgia Instructions: ED Arthralgia, ED Pain, Acute, Uncertain Cause Prescriptions: No Action doxepin 10 mg Capsule 10 mg PO QHS dextroamphetamine-amphetamine [Adderall] 15 mg Tablet 15 mg PO BID Rx Instructions: administer doses at least 4-6 hours apart hydroxyzine HCl 25 mg Tablet 25 mg PO QHS cyclobenzaprine 5 mg Tablet 5 mg PO TID PRN (Reason: Pain) Primary Care Provider: CODIE BANG Referrals: CODIE BANG [Other] Activity Restrictions/Additional Instructions: Your workup was largely normal today. The majority of inflammatory markers were normal. Your x-ray did not show any acute fracture or other acute abnormality. The cause your symptoms is not clear but at this time I think it safe for you to follow-up with your primary care doctor. If you develop worsening pain, fever or skin changes please return to the emergency room for repeat evaluation. Continue to alternate ibuprofen and Tylenol for pain. I will defer any steroids at this time as I do not want to mask any underlying issues or make things worse unintentionally. Disposition Disposition: Home, Self Care
--- NOTE | 2023-04-16 07:07 | ED.RN ---
this rn went to dc pt and notes that pt took off gown and had left. pt not in room or waiting area. this rn checks bed and trash for iv- none noted in trash, on bed or in sharps. no blood noted on floor or sheets. this rn attempts to call pt. pt did not answer. pt left with iv in arm- manager of environmental services called to do a well check.
--- NOTE | 2023-04-16 07:21 | ED.RN ---
This RN called [facility] dispatch to let them know pt. left with and PIV in left arm. Answered all questions for them and gave description of patient based on details from chart. Security looked up and saw pt. leave in a red 4 door truck. Dispatch told this RN to call andreea SMITH. This RN did call andreea SMITH and gave details.
--- NOTE | 2023-04-16 07:28 | ED.RN ---
This RN called servando SMITH to notify pt. left with PIV in. Gave them her address and description.
== END 2023-04-16 07:12 | disposition home or self-care (01) ==
PROVIDERS: Emergency Provider Emergency Medicine; Visit Provider Emergency Medicine
DX: M25.541 Pain in joints of right hand (principal); M25.542 Pain in joints of left hand; M25.561 Pain in right knee; M25.562 Pain in left knee; R07.89 Other chest pain; F17.210 Nicotine dependence, cigarettes, uncomplicated
CPT/HCPCS: 73130; 80053; 81001; 82550; 84484; 85025; 85652; 86140; 93005; 96374; 99283; A4216